=== PATIENT | female | born 1975 | race Caucasian/White ===

== ENCOUNTER → 2018-10-31 | Day surgery (SDC) | payer OTHER, BC ==
[~2018-10-31] MED LIST: ADDERALL 10 MG10 MG; BENADRYL; FENTANYL CITRATE/PF 100MCG/2 ML INJ ONE; GLUCAGON FOR INJ 1 MG VIAL ONE; KLONOPIN; KLONOPIN1 MG PO; MIDAZOLAM HCL 2 MG/2 ML VIAL ONE; PROPOFOL IV EMULSION 10 MG/ML 50 ML VIAL ONE; PROZAC20 MG PO; TRAZODONE HCL50 MG PO
--- OUTSIDE RECORDS SUMMARY | 2018-10-31 11:16 | XMS REPORT | Continuity of Care Document ---
Author Author Shineon Address Unknown Phone Unavailable Care Team Providers Care Devulcanizer Charger Name Role Phone Aviir Unavailable Unavailable Problems Problem Status Onset Date Classification Date Reported Comments Source Acute upper respiratory infection 10/09/2018 Diagnosis 10/09/2018 [facility] Medications Medication Details Route Status Patient Instructions Ordering Provider Order Date Source benzonatate 200 MG Oral Capsule benzonatate 200 mg capsule Take 1 capsule 3 times a day by oral route for 7 days. Active [facility] Clonazepam 1 MG Oral Tablet clonazepam 1 mg tablet Active [facility] Amphetamine aspartate 2.5 MG / Amphetamine Sulfate 2.5 MG / Dextroamphetamine saccharate 2.5 MG / Dextroamphetamine Sulfate 2.5 MG Oral Tablet dextroamphetamine- amphetamine 10 mg tablet Active [facility] Fluoxetine 10 MG Oral Capsule fluoxetine 10 mg capsule Active [facility] POLYETHYLENE GLYCOL 3350 202548 MG / Potassium Chloride 2970 MG / Sodium Bicarbonate 6740 MG / Sodium Chloride 5860 MG / sodium sulfate 00772 MG Powder for Oral Solution [Gavilyte-G] GaviLyte-G 236 gram-22.74 gram-6.74 gram-5.86 gram oral solution Active [facility] Prednisone 10 MG Oral Tablet prednisone 10 mg tablet Take 2 tablets twice a day by oral route for 5 days. Active [facility] Allergies, Adverse Reactions, Alerts Substance Category Reaction Severity Reaction type Status Date Reported Comments Source Pholcodine Allergy to substance 10/09/2018 [facility] Erythrocin Allergy to substance 10/09/2018 [facility] Immunizations No Data Provided for This Section Results Order Name Results Value Reference Range Date Interpretation Comments Source RESULT negative 10/09/2018 [facility] SWAB LOCATION Left and Right tonsillar pillars 10/09/2018 [facility] Pathology Reports No Data Provided for This Section Diagnostic Reports No Data Provided for This Section Consultation Notes No Data Provided for This Section Discharge Summaries No Data Provided for This Section History and Physicals No Data Provided for This Section Vital Signs Vital Sign Value Date Comments Source Diastolic (mm Hg) 62 10/09/2018 [facility] Height 64 10/09/2018 [facility] Systolic (mm Hg) 98 10/09/2018 [facility] Weight 110 10/09/2018 [facility] Encounters Location Location Details Encounter Type Encounter Number Reason For Visit Attending Provider ADM Date DC Date Status Source [place] - [facility] - [id number] Miller, [employer] [address] [facility] [place] [address], Ph. [id number] Анна Miller 10/09/2018 [facility] Procedures Procedure Code Date Perfomer Comments Source Tonsillectomy [facility] Hysterectomy [facility] Assessment and Plan No Data Provided for This Section Plan of Care No Data Provided for This Section Social History Social History Date Source Tobacco Smoking Status Never Smoker 10/09/2018 [facility] Family History No Data Provided for This Section Advance Directives No Data Provided for This Section Functional Status No Data Provided for This Section
--- OUTSIDE RECORDS SUMMARY | 2018-10-31 11:16 | XMS REPORT | Encounter Summary ---
Author Organization Unknown Address [address] [place] [id number] Phone [phone] Reason for Visit Medical Complaint Instructions 1. Acute upper respiratory infection upper respiratory infection (cold): care instructions benzonatate 200 mg capsule prednisone 10 mg tablet rapid strep group A, throat Discussion Note: None recorded. Plan of Care Patient Instructions Upper Respiratory Tract Infection (URI) - Viral This is most likely viral and does not currently require treatment with an antibiotic. Antibiotics are not helpful with viral illnesses and may cause side effects. If symptoms continue and worsen past 7 days, call or visit [facility] for consideration of further treatment options. Symptoms tend to worsen until around days 3-5 and then should improve each day afterwards. Symptoms tend to last 7-14 days, but cough can linger beyond 14 days. Use over the counter medications as directed. If symptoms continue to worsen instead of improve, or worsening cough, shortness of breath, sinus pressure/pain, thick mucus, or other concerning symptoms develop, call or visit [facility] or your primary care provider for further care. Seek immediate medical attention (ER or 911) if difficulty breathing, chest pain, chest pressure, severe headache, or other concerning symptoms develop. If you have any need to contact [facility], including questions or concerns, please contact or . Reminders Provider Appointments None recorded. Lab Rapid Strep Group a, Throat 10/09/2018 [facility] Referral None recorded. Procedures None recorded. Surgeries None recorded. Imaging None recorded. Medications Name Start Date benzonatate 200 mg capsule Take 1 capsule 3 times a day by oral route for 7 days. clonazepam 1 mg tablet dextroamphetamine-amphetamine 10 mg tablet fluoxetine 10 mg capsule GaviLyte-G 236 gram-22.74 gram-6.74 gram-5.86 gram oral solution prednisone 10 mg tablet Take 2 tablets twice a day by oral route for 5 days. Medications Administered None recorded. Vitals Height Weight BMI Blood Pressure 5 ft 4 in 110 lbs 18.9 kg/m2 98/62 mm[Hg] Lab Results Date Name Specimen Result Interpretation Description Value Range Status Address Rapid Strep Group a, Throat Result negative [facility]: [address] [place] [address] Swab Location Left and Right tonsillar pillars [facility]: [address] [place] [address] Allergies Code Code System Name Reaction Severity Status Onset 996807 RxNorm Erythrocin Active 77189 RxNorm Pholcodine Active Problems No Known Problems Procedures Date Name Performed by Tonsillectomy Information not available Hysterectomy Information not available Vaccine List None recorded. Social History Tobacco Smoking Status Never Smoker Past Encounters 10/09/2018 Acute Upper Respiratory Infection Анна Miller, [facility]: [address] [place] [address], Ph. History of Present Illness [id number] Reported By: Patient HPI: Location: head/sinuses, throat. Quality: sore throat, nasal/sinus congestion, dry cough. Duration: 3days. Severity: mild, pain level 3/10. Onset/Timing: gradual. Context: no sick contacts, no foreign travel, non-smoker. Associated Symptoms: no sputum production, no shortness of breath, no wheezing, no change in number of pillows needed to sleep at night, no sweats, no significant weight gain, no significant weight loss, no morning cough, no vomiting, no diarrhea, no rash, no nausea, no fever, no muscle aches, no headache, sore throat Review of Systems Basic Reported By: Patient Constitutional: Constitutional: fever Eyes: Eyes: no eye complaints Cyoz-Fdlx-Fchzh-Throat: Ears: no ear complaints. Mouth/Throat: no bleeding gums, no mouth complaints, no teeth problems Cardiovascular: Cardiovascular: no chest pain, no shortness of breath, no known heart murmur Respiratory: Respiratory: no wheezing, no shortness of breath, cough Skin: Skin: no rashes Neurologic: Neurologic: no dizziness, no headaches Physical Exam Adult Basic, Adult Female Complete Reported By: Patient Constitutional: General Appearance: healthy-appearing, well-nourished, well-developed. Level of Distress: NAD. Ambulation: ambulating normally Psychiatric: Mental Status: active and alert. Orientation: to time, to place, to person Eyes: Lids and Conjunctivae: non-injected, no discharge, no pallor. Sclerae: non-icteric Jxk-Uwyc-Ehiwa-Throat: Ears: no lesions on external ear, no outer ear tenderness, EACs clear, TMs clear. Hearing: no hearing loss. Nose: no lesions on external nose, nares patent, no septal deviation, nasal passages clear, no sinus tenderness, nasal discharge, nasal discharge--rhinorrhea, post nasal drip. Lips, Teeth, and Gums: no mouth or lip ulcers, no bleeding gums, normal dentition. Oropharynx: moist mucous membranes, no exudates, tonsils not enlarged, erythema Neck: Neck: supple, no masses. Lymph Nodes: no cervical LAD, no supraclavicular LAD Lungs: Respiratory effort: no dyspnea, no tachypnea, no use of accessory muscles, no intercostal retractions. Auscultation: breath sounds normal Cardiovascular: Heart Auscultation: RRR, no murmurs Neurologic: Gait and Station: normal gait, normal station Skin: Inspection and palpation: no rash, good turgor
[2018-10-31 16:05] VITALS: BP 110/79
--- NOTE | 2018-10-31 22:26 | Operative Report ---
DATE OF PROCEDURE: 10/31/2018 SURGEON: Aureliano Tinoco MD PROCEDURE: Colonoscopy with polypectomy. INDICATIONS FOR COLONOSCOPY: Surveillance colonoscopy, personal history of colon polyps. MEDICATIONS: The patient was done under MAC, please see anesthesiologist's note. PROCEDURE IN DETAIL: With the patient in left lateral decubitus position, a flexible fiberoptic Olympus colonoscope was inserted into the rectum with ease and advanced all the way to the cecum. It was then withdrawn slowly and the colon was excessively tortuous and sharply angulated and visualization was suboptimal. The scope was then withdrawn slowly, whatever was visualized the mucosa overlying the cecum, ascending colon, transverse, descending, and sigmoid appeared to be within normal limits. Three minute hyperplastic-appearing polyps were noted in the rectum and those were removed per hot biopsy forceps. The scope was then retroflexed into the distal rectum and small internal hemorrhoids were noted, none of which was actively bleeding. The scope was then straightened out and was subsequently withdrawn. The patient tolerated the procedure well. IMPRESSION: 1. Rectal polyps, minute, x3, hot biopsied. 2. Internal hemorrhoids, none actively bleeding. PLAN: Follow up histology. Continue high-fiber, low-fat diet. Initiate Visbiome 1 p.o. b.i.d. Followup colonoscopy in 5 years. Aureliano Tinoco MD [facility] [place] /[id number] cc: Britney Scales MD
== END | disposition home or self-care (01) ==
LOC: OR 11:12
PROVIDERS: ATTEND Internal Medicine Gastroenterology
DX: K59.00 Constipation, unspecified (principal); K62.1 Rectal polyp; Z86.010 Personal history of colon polyps; K64.8 Other hemorrhoids; K58.9 Irritable bowel syndrome, unspecified; K56.609 Unspecified intestinal obstruction, unspecified as to partial versus complete obstruction; F90.9 Attention-deficit hyperactivity disorder, unspecified type; F32.9 Major depressive disorder, single episode, unspecified; F41.9 Anxiety disorder, unspecified; Z88.6 Allergy status to analgesic agent; Z88.1 Allergy status to other antibiotic agents
CPT/HCPCS: 45384; J1610; J2250; J2704; J3010; 45378